=== PATIENT | female | born 1985 | race Caucasian/White ===

== ENCOUNTER 2017-05-23 05:58 | Emergency (ER) | payer MEDICAID ==
--- NOTE | ~2017-05-23 | ER ---
PATIENT'S NAME: MATEO [facility] AGE: 31 Y [address] ROOM: [place] [address] LOCATION: ED ADMIT DATE: 05/23/2017 ER/Outpatient Report DISCHARGE DATE: 05/23/2017 FAMILY PHYSICIAN: Lloyd Pulido MD ATTENDING PHYSICIAN: Cynthia Knight Time of Arrival: 0558 hours. Time Seen: 0605 hours. IDENTIFICATION: A 31-year-old female. CHIEF COMPLAINT: Headache and vomiting. HISTORY OF PRESENT ILLNESS: The patient is a 31-year-old female who has had a headache for 3 days, bitemporal headache, associated with photophobia and nausea. The patient has never had a headache that lasted this long before. The patient has no history of migraine headaches. The patient has had no fall or injury, no recent travel, no illness, no fever or chills, no other problems or concerns. ALLERGIES: NO KNOWN DRUG ALLERGIES. CURRENT MEDICATIONS: Iron. MEDICAL PROBLEMS: Denies. PRIOR SURGERIES: section. SOCIAL HISTORY: The patient lives in [place]. Tobacco use, denies. Alcohol use, denies. Drug use, denies. REVIEW OF SYSTEMS: All systems reviewed and negative other than what is noted in the HPI. Last menstrual period is current and she denies any chance of . FAMILY HISTORY: No pertinent family history. PATIENT'S NAME: MATEO [facility] AGE: 31 Y [address] ROOM: [place] [address] LOCATION: [facility] ADMIT DATE: 05/23/2017 ER/Outpatient Report DISCHARGE DATE: 05/23/2017 FAMILY PHYSICIAN: Lloyd Pulido MD ATTENDING PHYSICIAN: Cynthia Knight ILL CONTACTS: She has a son who was diagnosed with Lyme disease empirically. Titers are still pending. He is to get a redraw of his blood today at [facility], but they have not traveled outside of [place]. She has had no mosquito bites and no other exposure that we could identify. PHYSICAL EXAMINATION: VITAL SIGNS: Weight 116 kg. Blood pressure 144/85, pulse 77, respirations 20, temperature 96.5, and saturations 99% on room air. GENERAL: A 31-year-old female, in obvious distress. HEENT: Head: Normocephalic, atraumatic. Ears: TMs translucent, both ears. Eyes: Pupils equal and reactive to light and accommodation. Extraocular movements intact. Discs sharp. Vessels benign on funduscopic exam. Nose: Mucosa pink. No lesions. Mouth: No lesions. Pharynx benign. NECK: Supple. No lymphadenopathy. No nuchal rigidity. LUNGS: Clear to auscultation. HEART: Regular rate and rhythm. ABDOMEN: Bowel sounds present. Soft, nondistended, and nontender. SKIN: [place], warm, and dry. No lesions or rashes are noted. NEUROLOGIC: The patient is alert and oriented x4. Cranial nerves 2 through 12 grossly intact. Motor strength 5/5 throughout. Sensation is intact to light touch. No lower extremity edema. DIAGNOSTIC DATA: Lyme titers have been drawn and pending. West Nile virus titers pending. Procalcitonin less than 0.05. Hemoglobin 13.8, hematocrit 40.6, platelets 277, white count 7.5, normal differential. Sedimentation rate 13. Head CT, no acute process per Radiology. Sodium 141, potassium 4.2, chloride 109, CO2 of 26, BUN 14, creatinine 0.9, and blood sugar 122. Liver enzymes normal. CRP 0.49. UA negative. Urine hCG negative. Lactate 1.0. EMERGENCY ROOM COURSE: The patient was given an IV normal saline 100 mL/h has been ordered, fentanyl 25-50 mcg for pain x2, Zofran for nausea. Her pain and nausea improved. IMPRESSION: Headache. PLAN: Rest and fluids. Tylenol or Advil for pain, Acme for severe pain, Zofran for nausea, and follow up with Dr. Pulido today when she takes her son in or tomorrow for recheck. Return if symptoms worsen here to the emergency room. The patient understands and agrees, and all questions have been answered. PATIENT'S NAME: MALCOLM GALINDO [facility] AGE: 31 Y [address] ROOM: [place], [place] [address] LOCATION: [facility] ADMIT DATE: 05/23/2017 ER/Outpatient Report DISCHARGE DATE: 05/23/2017 FAMILY PHYSICIAN: Lloyd Pulido MD ATTENDING PHYSICIAN: Cynthia Knight MD NORM MALIN/santana /[id number] d: 05/23/17 2257 t: 05/27/17 0911, OUTPATIENT REPORT
[~2017-05-23 05:58] MED LIST: MOTRIN800 MG PO; PERCOCET 5-3251 EACH PO; PRENATAL 1+1)(P1 TAB PO
[2017-05-23 06:42] LABS: BILIRUBIN URINE NEGATIVE (NEGATIVE); BLOOD URINE 50 /UL (NEGATIVE); COLOR URINE YELLOW (YELLOW); GLUCOSE URINE NEGATIVE (NEGATIVE); KETONE URINE NEGATIVE (NEGATIVE); LEUKOCYTES URINE NEGATIVE /UL (NEGATIVE); NITRITE URINE NEGATIVE (NEGATIVE); PROTEIN URINE 100 mg/dL (NEGATIVE); SPEC GRAVITY URINE 1.025 (1.003-1.035); TURBIDITY URINE 1+ (CLEAR); UROBILINOGEN URINE NORMAL (NORMAL)
[2017-05-23 06:55] LABS: BASOPHIL % 0.4 %; EOSINOPHIL # 0.1 K/uL (0.0-0.5); EOSINOPHIL % 1.1 %; HEMATOCRIT 40.6 % (33.0-46.0); HEMOGLOBIN 13.8 g/dL (11.0-15.0); IMMATURE GRANULOCYTE % 0.3 %; LYMPHOCYTE # 1.2 K/uL (0.8-4.0); LYMPHOCYTE % 15.4 %; MCH 30.6 pg (27.0-34.0); MONOCYTE # 0.4 K/uL (0.0-1.0); MONOCYTE % 4.9 %; NEUTROPHIL # (ANC) 5.8 K/uL (1.8-7.8); NEUTROPHIL % 77.9 %; NRBC % 0 /100WBC (0-0.00); PLATELET COUNT 277 K/uL (150-450); RBC 4.51 M/uL (3.50-5.50); WBC 7.5 K/uL (4.0-11.0)
[2017-05-23 06:55] LABS: BACTERIA URINE NEGATIVE (NEGATIVE); RBC URINE 0-2 #/HPF (NEGATIVE); WBC URINE NEGATIVE #/HPF (NEGATIVE)
[2017-05-23 07:18] LABS: ALBUMIN 3.7 gm/dL (3.5-5.0); ANION GAP 10.2 (10.0-19.0); CALCIUM 8.1 mg/dL (8.5-10.5); CREATININE 0.9 mg/dL (0.5-1.1); POTASSIUM 4.2 mMol/L (3.7-5.1); TOTAL BILIRUBIN 0.7 mg/dL (0.0-1.5); TOTAL PROTEIN 7.2 g/dL (6.0-8.4)
== END 2017-05-23 08:29 | disposition disaster alternative care site (69) ==
LOC: GMED 05:58
PROVIDERS: Family Medicine
DX: R51 Headache (principal); Z98.890 Other specified postprocedural states; Z79.899 Other long term (current) drug therapy
CPT/HCPCS: J1885; J2405; J3010; J7030

== ENCOUNTER 2017-05-26 06:43 | Emergency (ER) | payer MEDICAID ==
--- NOTE | ~2017-05-26 | ER ---
PATIENT'S NAME: MALCOLM [facility] AGE: 31 Y [address] ROOM: [place] [address] LOCATION: [facility] ADMIT DATE: 05/26/2017 ER/Outpatient Report DISCHARGE DATE: 05/26/2017 FAMILY PHYSICIAN: Lloyd Pulido MD ATTENDING PHYSICIAN: yT Alarcon CHIEF COMPLAINT: Headache. HISTORY OF PRESENT ILLNESS: Ms. Pete knows that she has had a headache since last Friday. She was seen Friday by Dr. Knight. She received pain medications and extensive workup at that time including head CT, Lyme titers, and West Nile virus titers. The patient states she was feeling better on Friday; however, her headache came back yesterday, and this morning, it is unbearable. It is the same in nature. It is bitemporal, centered kind of around the eyes, and radiates back over the head. She does not like the bright lights, but they do not particularly bother her. The pain is so intense she cannot sleep. The patient is otherwise doing okay. She does have a history of headaches, but this is different than she has had previously prior to the last several days. PAST MEDICAL HISTORY: Documented on the record and reviewed by me. SOCIAL HISTORY: Documented on the record and reviewed by me. MEDICATIONS: Documented on the record and reviewed by me. ALLERGIES: DOCUMENTED ON THE RECORD AND REVIEWED BY ME. REVIEW OF SYSTEMS: All systems reviewed and negative except as noted in the HPI. PHYSICAL EXAMINATION: VITAL SIGNS: Blood pressure is 131/87, pulse 83, respiratory rate is 20, temperature 96.4, and SpO2 is 98% on room air. Pain is rated at 10/10. GENERAL: Age-appropriate female, sitting upright on the exam table, crying, but in no apparent distress. NEUROLOGIC: Awake and alert. GCS is 15. No focal deficits. No asymmetry. No obvious vision changes. No coordination deficits. No gait abnormalities. HEENT: Normocephalic, atraumatic. Eyes are PERRL. No nystagmus. Oropharynx is clear and moist. PATIENT'S NAME: MALCOLM [facility] AGE: 31 Y [address] ROOM: [place], [place] [address] LOCATION: [facility] ADMIT DATE: 05/26/2017 ER/Outpatient Report DISCHARGE DATE: 05/26/2017 FAMILY PHYSICIAN: Lloyd Pulido MD ATTENDING PHYSICIAN: Ty Alarcon NECK: Supple. Trachea is midline. Full active and passive range of motion. CHEST: Heart has a regular rate and rhythm with no murmurs. Lungs are clear to auscultation bilaterally. ABDOMEN: Soft and benign. EXTREMITIES: Warm and well perfused. SKIN: Without any rashes. LABORATORY AND X-RAY DATA: None. IMPRESSION: Headache syndrome. EMERGENCY DEPARTMENT COURSE: The patient was seen and evaluated as above. After review of her most recent ER encounter, I elected not to do any labs. Her presentation appears to be the same nature and character as she was previously. I do not think her presentation is consistent with meningitis or encephalitis currently. Lyme titers were negative. She does have the West Nile IgM pending. I do not think that she needs another head CT today. I treated her with Compazine, Benadryl, Toradol, fluids, Zofran, and Nubain with almost complete resolution of her headache symptoms. She was able to sleep in the ER. Her vital signs remained stable while in the ER. I did discuss the presentation with Dr. Pulido, the patient's primary care doctor, and he will see her as needed and follow up within the next 48 hours if the patient has recurrent symptoms. She was also given Decadron to try to prevent a rebound headache. Her presentation is not consistent with subarachnoid hemorrhage either. All questions answered, and the patient was discharged in stable condition. TY ALARCON MD JH/modl /[id number] d: 05/26/17 1408 t: 06/10/17 0910, OUTPATIENT REPORT
== END 2017-05-26 09:35 | disposition disaster alternative care site (69) ==
LOC: GMED 06:43
DX: G44.89 Other headache syndrome (principal); Z79.891 Long term (current) use of opiate analgesic; Z79.899 Other long term (current) drug therapy; Z98.890 Other specified postprocedural states
CPT/HCPCS: J0780; J1100; J1200; J1885; J2300; J2405; J7030